=== PATIENT | male | born 1965 | race African-American/Black ===

== ENCOUNTER 2019-09-27 06:30 | Observation (INO) | payer BC, OTHER ==
[~2019-09-27] VITALS: Ht 177.8 cm; Wt 80.3 kg
[~2019-09-27 06:30] MED LIST: METFORMIN HCL500 MG PO; TOPROL XL50 MG PO; TRIBENZOR 40-11 EAC1 PO
[2019-09-27] MEDS ORDERED: GABAPENTIN 300 MG CAP ONE (07:05)
[2019-09-27] MEDS ORDERED: CELECOXIB 200 MG CAP ONE (07:05)
[2019-09-27] MEDS ORDERED: DEXAMETHASONE SOD PHOS 10 MG/1 ML VIAL ONE (07:05)
[2019-09-27] MEDS ORDERED: CEFAZOLIN SOD 1 GM/NS 50ML 100 ML IV ONE (07:05)
[2019-09-27] MEDS ORDERED: SODIUM CHLORIDE 0.9% 500ML 500 ML ONE (07:13)
[2019-09-27] MEDS ORDERED: VANCOMYCIN HCL 1,000 MG ONE (07:13)
[2019-09-27] MEDS ORDERED: BACITRACIN 50,000 UNIT VIAL ONE (07:14)
[2019-09-27] MEDS ORDERED: ROPIVACAINE 246.25 MG, EPINEPHRINE HCL 1:1000 1ML 0.5 MG, CLONIDINE HCL 0.08 MG, KETORO... INJ ONE ×5 (07:45)
[2019-09-27] MEDS ORDERED: BUPIVACAINE 7.5MG/ML /DEXTROSE 82.5MG/ML 2 ML AMP INJ ONE (07:52)
[2019-09-27] MEDS ORDERED: TRANEXAMIC ACID 1,000 MG/10 ML ML ONE (08:42)
[2019-09-27] MEDS ORDERED: ACETAMINOPHEN 650 MG SUPP PR PRN (09:30)
[2019-09-27] MEDS ORDERED: ZOLPIDEM TARTRATE 5 MG TAB PO PRN (09:30)
[2019-09-27] MEDS ORDERED: HYDROCODONE/APAP 5MG-325MG TAB PO PRN (09:30)
[2019-09-27] MEDS ORDERED: DIPHENHYDRAMINE HCL INJ 50 MG/ML VIAL IV PRN (09:30)
[2019-09-27] MEDS ORDERED: KETOROLAC TROMETHAMINE 30 MG/ML VIAL IV PRN (09:30)
[2019-09-27] MEDS ORDERED: ONDANSETRON HCL INJ 2MG/ML 2ML 2 MG/ML VIAL IV PRN (09:30)
[2019-09-27] MEDS ORDERED: DOCUSATE SODIUM 100 MG CAP PO PRN (09:30)
--- NOTE | 2019-09-27 10:44 | Diagnostic Imaging Report ---
EXAMINATION: PELVIS AP 1-2 VIEWS INDICATION: Postoperative COMPARISON: None FINDINGS: Portable AP radiograph of the pelvis demonstrates immediate postoperative findings of left total hip replacement. Alignment is anatomic. No unexpected fracture. Postoperative soft tissue emphysema. Surgical skin robert in place. Mild degenerative changes of the [place] right hip joint. IMPRESSION: Anatomic alignment status post left total hip replacement. Signed by: Ulises Ashby MD on 09/27/2019 10:41 AM
[2019-09-27 11:45] VITALS: BP 100/61
--- NOTE | 2019-09-27 11:58 | Operative Report ---
DATE OF PROCEDURE: 09/27/2019 SURGEON: Doni Sanchez MD STATIONS SUPERINTENDENT: Nikita Cabrera, certified PA. PREOPERATIVE DIAGNOSIS: Osteonecrosis, left hip. POSTOPERATIVE DIAGNOSIS: Osteonecrosis, left hip. PROCEDURE: Left total hip arthroplasty. INDICATIONS: The patient is a 54-year-old gentleman, who has longstanding osteonecrosis of both hips. He states that he is more symptomatic on the left compared to the right. He had bilateral cord decompressions several years ago. His symptoms improved until recently. He states that the pain in his hips compromises his quality of life to the extent that he would like to proceed with definitive intervention. The risks and benefits of hip replacement surgery were discussed. All of his questions were answered. He stated he understood and wished to proceed. PROCEDURE IN DETAIL: The patient was brought to the operating room and given a spinal anesthetic. He received prophylactic antibiotics and tranexamic acid in the holding area. He was positioned in the right lateral decubitus position. His left hip was prepped and draped in a sterile manner. A preoperative time-out was performed. A posterior approach was made to the left hip. Hemostasis was obtained with electrocautery. The deep fascia was incised. A self-retaining Charnley retractor was placed. The posterior capsule was carefully exposed and released. He was noted to have significant contracture prohibiting internal rotation. The hip was dislocated and an oscillating saw was used to remove the femoral head. Subchondral collapse was noted. A moderate joint effusion was encountered. Acetabular retractors were carefully placed. The labral remnant was excised. The true floor of the acetabulum was then established with a 46 mm reamer. The socket was then sequentially reamed up to 53 mm. This accomplished bleeding hemispherical cancellous bone. The hip was thoroughly irrigated on several occasions with a shower tip pulsatile lavage were a spray mixture of diluted polymyxin and vancomycin spray. A 54 mm outer diameter OsseoTi socket was then impacted into place. All of the components were produced by [employer]. The fixation of the socket was augmented with a single 25 mm cancellous screw placed into the ilium. A highly cross-linked polyethylene liner with a 36 mm inner diameter was then impacted into place. Care was taken to make sure that there was no evidence of soft tissue interposition. The socket was packed with a moistly soaked lap sponge. Attention was directed towards the proximal femur. A box cutting osteotome and taper pin reamer were used to establish entry to the femoral canal. The Taperloc broaches were impacted. A size 12 stem had good canal fill and stability for a trial reduction. A standard 36 mm head was noted to restore appropriate limb length and have good stability throughout a full arc of motion. The trial implants were removed. The hip was further irrigated with the pulsatile lavage. A Taperloc stem was then impacted into place. A standard neck and 36 mm ceramic head were then seated onto the stem after making sure it was clean and dry. A final reduction was performed. A 100 mL premixed pericapsular DOMENIC injection was then placed in and around the soft tissue. A 500 mg of vancomycin powder was sprinkled into the wound. The deep fascia was closed with interrupted #2 Ethibond. The skin was closed with subcuticular Vicryl and robert. A sterile Aquacel bandage was applied. He was returned to the supine position and transported to the recovery room in stable condition. Estimated blood loss was 100 mL. At the end of the procedure, all needle and sponge counts were correct. Doni Sanchez MD DR/JANIYA /[id number]
[2019-09-27] MEDS: SODIUM CHLORIDE 0.9% 1000ML 1,000 ML IV SCH ×2 (12:33→23:20)
--- NOTE | 2019-09-27 12:35 | NUR ---
DR SENIOR OFFICE PREARRANGED FOLLOWING DISCHARGE PLAN OF:HOME [id number] [address]YAL [id number] HOME HEALTH WITH HOME CARE PROVIDERS CONFIRMED WITH [facility] [phone] DME 3 IN ONE COMMODE, CPM AND ROLLING WALKER WITH WHEELS. PROVIDED BY [facility] [phone]
[2019-09-27 12:47] VITALS: BP 100/61
[2019-09-27 12:49] VITALS: BP 100/61
[2019-09-27] MEDS ORDERED: PROPOFOL IV EMULSION 10 MG/ML 20 ML VIAL ONE (14:02)
[2019-09-27] MEDS ORDERED: LIDOCAINE HCL 2% LOCAL INJ 5 ML SDV VIAL INJ ONE (14:02)
[2019-09-27] MEDS ORDERED: ETOMIDATE 2 MG/ML 10 ML INJ IV ONE (14:02)
[2019-09-27] MEDS ORDERED: ONDANSETRON HCL INJ 2MG/ML 2ML 2 MG/ML VIAL ONE (14:02)
[2019-09-27] MEDS: CEFAZOLIN SOD 1 GM/NS 50ML 50 ML IV SCH (16:09)
[2019-09-27] MEDS: CELECOXIB 200 MG CAP PO SCH (16:09)
[2019-09-27] MEDS: ASPIRIN 325 MG TAB PO SCH (16:09)
[2019-09-27 16:46] VITALS: BP 116/82
--- NOTE | 2019-09-27 19:55 | NUR ---
RECEIVED REPORT FROM PREVIOUS NURSE. CALL LIGHT WITHIN REACH. PATIENT IN BED. ROUNDING PERFORMED.
[2019-09-27 20:00] VITALS: BP 118/70
[2019-09-27] MEDS: HYDROCODONE/APAP 7.5MG-325MG 1 EA TAB PO PRN (20:22)
[2019-09-27 20:42] VITALS: BP 118/70
[2019-09-28] VITALS: BP 125/73
[2019-09-28] MEDS: CEFAZOLIN SOD 1 GM/NS 50ML 50 ML IV SCH ×2 (00:33→08:58)
[2019-09-28] MEDS: HYDROCODONE/APAP 7.5MG-325MG 1 EA TAB PO PRN (00:33)
[2019-09-28 04:00] VITALS: BP 128/73
[2019-09-28] MEDS: ACETAMINOPHEN 1000 MG/100 ML IV PRN ×2 (04:52→10:44)
[2019-09-28 04:58] LABS: HEMATOCRIT 37.8 % (38.2-49.6); HEMOGLOBIN 12.6 g/dL (14.0-18.0)
--- NOTE | 2019-09-28 07:28 | NUR ---
GAVE BEDSIDE SHIFT REPORT TO ONCOMING NURSE. CALL LIGHT WITHIN REACH. PATIENT IN BED. HOURLY ROUNDING PERFORMED.
--- NOTE | 2019-09-28 07:29 | NUR ---
bedside shift report received from PM nurse. pt awake, alert, oriented X3, no complaints at this time.
[2019-09-28] MEDS: SODIUM CHLORIDE 0.9% 1000ML 1,000 ML IV SCH (07:30)
[2019-09-28 07:51] VITALS: BP 128/73
[2019-09-28 07:58] VITALS: BP 127/75
[2019-09-28] MEDS: CELECOXIB 200 MG CAP PO SCH (08:58)
[2019-09-28] MEDS: ASPIRIN 325 MG TAB PO SCH (08:58)
--- NOTE | 2019-09-28 09:02 | Consultation ---
DATE OF CONSULTATION: REASON FOR CONSULTATION: Postop medical management. HISTORY OF PRESENT ILLNESS: The patient is a 54-year-old gentleman, status post left hip repair due to osteonecrosis. REVIEW OF SYSTEMS: Complains of left hip pain. Otherwise, denies any chills, fevers, nausea, vomiting, headache, shortness of breath, or dizziness, no chest pain on review of systems. PAST MEDICAL HISTORY: Significant for diabetes and high blood pressure. MEDICATIONS: See MAR. ALLERGIES: SHELLFISH. SUBJECTIVE: He works full-time. Denies any tobacco use. FAMILY HISTORY: Stroke, high blood pressure and heart disease. PHYSICAL EXAMINATION: VITAL SIGNS: 97.8, pulse 53, blood pressure 125/73, sats 95% on room air. GENERAL: No apparent distress, lying in bed. NECK: Supple. CARDIOVASCULAR: Regular rate and rhythm. LUNGS: Clear to auscultation bilaterally. ABDOMEN: Good bowel sounds. Soft, nontender. EXTREMITIES: No clubbing or cyanosis. NEUROLOGIC: Nonfocal. ASSESSMENT AND PLAN: 1. Anemia. Check CBC. 2. Left hip pain. Continue with postoperative care. 3. Bradycardia. Continue to monitor since he is asymptomatic. 4. Diabetes. Continue to monitor as well. 5. Hypertension. We will restart his medicines at discharge. Please see hospital chart for full details. MD MICHAEL Obregon/JANIYA /[id number]
[2019-09-28] MEDS ORDERED: ONDANSETRON HCL 4 MG ORAL DISINTEGRATING TAB PO PRN (11:30)
[2019-09-28 11:35] VITALS: BP 113/70
== END 2019-09-28 12:10 | disposition home health service (06) ==
LOC: OR 06:30 → PACU V 09:28 → MED/SURG 10:54
PROVIDERS: ADMIT Specialist; ATTEND Specialist
DX: M16.0 Bilateral primary osteoarthritis of hip (principal); E11.9 Type 2 diabetes mellitus without complications; I10 Essential (primary) hypertension; R00.1 Bradycardia, unspecified; G89.18 Other acute postprocedural pain; Z11.59 Encounter for screening for other viral diseases
CPT/HCPCS: 27130; 36415 ×2; 72170; 82948; 85014; 85018; 86850; 86900; 86920; 88304; 88311; 97116 ×2; 97139; 97161; 97530 ×2; G0378 ×2; J0131; J0171; J0690 ×2; J1100; J1885; J2001; J2405; J2704; J2795; J3370; J7030; J7040; U0002

== ENCOUNTER 2019-12-06 05:59 | Observation (INO) | payer BC, OTHER ==
[~2019-12-06] VITALS: Ht 177.8 cm; Wt 81.6 kg
[2019-12-06] MEDS ORDERED: BUPIVACAINE 7.5MG/ML /DEXTROSE 82.5MG/ML 2 ML AMP INJ ONE (06:43)
[2019-12-06] MEDS ORDERED: GABAPENTIN 300 MG CAP ONE (07:19)
[2019-12-06] MEDS ORDERED: DEXAMETHASONE SOD PHOS 10 MG/1 ML VIAL ONE (07:19)
[2019-12-06] MEDS ORDERED: CEFAZOLIN SOD 1 GM/NS 50ML 100 ML IV ONE (07:19)
[2019-12-06] MEDS ORDERED: CELECOXIB 200 MG CAP ONE (07:19)
[2019-12-06] MEDS ORDERED: VANCOMYCIN HCL 1,000 MG ONE (07:28)
[2019-12-06] MEDS ORDERED: TRANEXAMIC ACID 1,000 MG/10 ML ML ONE (07:29)
[2019-12-06] MEDS ORDERED: SODIUM CHLORIDE 0.9% 500ML 500 ML ONE (07:29)
[2019-12-06] MEDS ORDERED: ROPIVACAINE 246.25 MG, EPINEPHRINE HCL 1:1000 1ML 0.5 MG, CLONIDINE HCL 0.08 MG, KETORO... INJ ONE ×5 (08:00)
[2019-12-06] MEDS ORDERED: DOCUSATE SODIUM 100 MG CAP PO PRN (09:30)
[2019-12-06] MEDS ORDERED: ONDANSETRON HCL INJ 2MG/ML 2ML 2 MG/ML VIAL IV PRN (09:30)
[2019-12-06] MEDS ORDERED: DIPHENHYDRAMINE HCL INJ 50 MG/ML VIAL IV PRN (09:30)
[2019-12-06] MEDS ORDERED: HYDROCODONE/APAP 5MG-325MG TAB PO PRN (09:30)
[2019-12-06] MEDS ORDERED: ACETAMINOPHEN 650 MG SUPP PR PRN (09:30)
[2019-12-06] MEDS ORDERED: SODIUM CHLORIDE 0.9% 1000ML 1,000 ML IV SCH (09:30)
[2019-12-06] MEDS ORDERED: KETOROLAC TROMETHAMINE 30 MG/ML VIAL IV PRN (09:30)
[2019-12-06] MEDS ORDERED: FENTANYL CITRATE/PF 100MCG/2 ML INJ ONE ×2 (09:56→12:58)
--- NOTE | 2019-12-06 09:57 | Diagnostic Imaging Report ---
EXAMINATION: PELVIS AP 1-2 VIEWS INDICATION: Postoperative COMPARISON: None FINDINGS: Single AP view of the pelvis demonstrates immediate postoperative findings of right total hip replacement. Alignment is anatomic. No unexpected fracture. Postoperative soft tissue emphysema. Surgical skin robert over line the lateral thigh soft tissues. Anatomic alignment of prior left total hip replacement without evidence of hardware complication. IMPRESSION: Anatomic alignment status post interval right total hip replacement. Signed by: Ulises Ashby MD on 12/06/2019 9:54 AM
[2019-12-06] MEDS: HYDROCODONE/APAP 7.5MG-325MG 1 EA TAB PO PRN ×3 (10:10→18:08)
[2019-12-06] MEDS ORDERED: HYDROMORPHONE 1MG/1ML INJ ONE (10:24)
--- NOTE | 2019-12-06 11:27 | Operative Report ---
DATE OF PROCEDURE: 12/06/2019 SURGEON: Doni Sanchez MD FLOOR CLERK: Nikita Cabrera, certified PA. PREOPERATIVE DIAGNOSIS: Avascular necrosis, right hip. POSTOPERATIVE DIAGNOSIS: Avascular necrosis, right hip. PROCEDURE: Right total hip arthroplasty. INDICATIONS: The patient is a 54-year-old gentleman, who has a long history of avascular necrosis involving both hips. He has been through core decompressions and a left total hip replacement. He would now like to proceed with a right total hip replacement. The risks and benefits have been explained. He is familiar with the procedure. All of his questions have been answered. He states he understands and wishes to proceed. PROCEDURE IN DETAIL: The patient was brought to the operating room and placed under a spinal anesthetic. He received prophylactic antibiotics and tranexamic acid in the holding area. He was positioned in the left lateral decubitus position. His right hip was prepped and draped in a sterile manner. A preoperative time-out was performed. A posterior approach was made to the right hip. Care was taken to avoid any injury to the sciatic nerve. A self-retaining Charnley retractor was placed. Hemostasis was obtained with electrocautery. The posterior capsule was carefully exposed. A portion of the short external rotators and the posterior capsule were released. The hip was dislocated. Subchondral collapse of the femoral head was noted. An oscillating saw was used to resect the femoral head. Acetabular retractors were then carefully placed. The remnant of the labrum was excised. The true floor of the acetabulum was established with a 46 mm reamer. The socket was then sequentially reamed to 53 mm. This accomplished bleeding hemispherical cancellous bone. A [employer] 54 mm outer diameter OsseoTi socket was then impacted into place. Good fixation and bone quality were encountered. Fixation was augmented with a single 25 mm screw placed into the ilium. A highly cross-linked polyethylene liner with a 36 mm inner diameter was then seated into place. Care was taken to make sure that there was no evidence of soft tissue interposition. The socket was thoroughly irrigated on several occasions with a shower tip pulsatile lavage. A portion of a 100 mL premixed pericapsular DOMENIC injection was placed around the deep soft tissue. The socket was packed with a moistly soaked lap sponge and attention was directed towards the proximal femur. A box cutting osteotome and taper pin reamer were used to establish entry to the femoral canal. The [employer] Taperloc broaches were impacted. A size 12 stem had good canal fill and rotational stability for trial reduction. A standard 36 mm head was felt to provide appropriate soft tissue balancing, zoroastrian of limb length, and stability through a full arc of motion. The trial implants were removed. The pulsatile lavage was used to thoroughly irrigate the hip. The implant was seated. The neck of the stem was irrigated and cleaned and dried for placement of a standard 36 mm ceramic head and neck. A final reduction was performed. The posterior capsule was then carefully repaired using interrupted #2 Ethibond. A 500 mg of vancomycin powder was sprinkled into the deep wound. The fascia was closed with #2 Ethibond. The skin was closed with subcuticular Vicryl and robert. A sterile Aquacel bandage was applied. The patient was returned to the supine position and transported to the recovery room in stable condition. Estimated blood loss was 75 mL. At the end of the procedure, all needle and sponge counts were correct. Doni Sanchez MD DR/JANIYA /[id number]
[2019-12-06] MEDS ORDERED: MIDAZOLAM HCL 2 MG/2 ML VIAL ONE (12:58)
[2019-12-06] MEDS ORDERED: LIDOCAINE HCL 2% LOCAL INJ 5 ML SDV VIAL INJ ONE (13:15)
[2019-12-06] MEDS ORDERED: PROPOFOL IV EMULSION 10 MG/ML 20 ML VIAL ONE (13:15)
[2019-12-06] MEDS ORDERED: ONDANSETRON HCL INJ 2MG/ML 2ML 2 MG/ML VIAL ONE (13:15)
[2019-12-06 13:39] VITALS: BP 106/66
[2019-12-06] MEDS ORDERED: ACETAMINOPHEN 1000 MG/100 ML IV PRN (14:00)
[2019-12-06 14:31] VITALS: BP 119/74
[2019-12-06 16:34] VITALS: BP 121/61
[2019-12-06] MEDS: ASPIRIN 325 MG TAB PO SCH (18:08)
[2019-12-06] MEDS: CELECOXIB 100 MG CAP PO SCH (18:08)
[2019-12-06] MEDS: CEFAZOLIN SOD 1 GM/NS 50ML 50 ML IV SCH (18:08)
[2019-12-06 20:00] VITALS: BP 127/70
[2019-12-06] MEDS ORDERED: ZOLPIDEM TARTRATE 5 MG TAB PO PRN (21:00)
[2019-12-06 21:39] VITALS: BP 127/70
[2019-12-07] VITALS: BP 127/69
[2019-12-07] MEDS: CEFAZOLIN SOD 1 GM/NS 50ML 50 ML IV SCH ×2 (00:48→08:51)
[2019-12-07] MEDS: HYDROCODONE/APAP 7.5MG-325MG 1 EA TAB PO PRN ×3 (02:05→09:40)
[2019-12-07 04:00] VITALS: BP 137/71
[2019-12-07 05:19] LABS: HEMATOCRIT 36.1 % (38.2-49.6); HEMOGLOBIN 12.3 g/dL (14.0-18.0)
--- NOTE | 2019-12-07 05:26 | Consultation ---
DATE OF CONSULTATION: REASON FOR CONSULTATION: Postop medical management. HISTORY OF PRESENT ILLNESS: The patient is a 54-year-old gentleman, status post right hip arthroplasty. He is doing very well postoperatively with minimal pain. Denies any fever, chills, nausea, vomiting, headache, shortness of breath on review of systems. PAST MEDICAL HISTORY: Significant for diabetes and hypertension. MEDICATIONS: See MAR. Tramadol, Tribenzor, metformin, and Coreg. ALLERGIES: SHELLFISH. SOCIAL HISTORY: He drinks about 3 drinks a week. He is . 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 FAMILY HISTORY: Coronary artery disease, high blood pressure, and stroke. PHYSICAL EXAMINATION: VITAL SIGNS: Temperature 97.8, pulse 62, blood pressure 127/69, sats 98% on room air. GENERAL: No apparent distress, lying in bed. NECK: Supple. CARDIOVASCULAR: Regular rate and rhythm. LUNGS: Clear to auscultation bilaterally. ABDOMEN: Good bowel sounds. Soft, nontender. EXTREMITIES: No clubbing or cyanosis. NEUROLOGIC: Nonfocal. ASSESSMENT AND PLAN: 1. Right hip pain. We will continue with postoperative care and physical therapy. 2. Anemia. We will check a CBC. 3. Hypertension. We will continue to monitor his blood pressure. 4. Diabetes. Continue to monitor sugar and restart his med at discharge. Please see hospital chart for full details. MD MICHAEL Obregon/JANIYA /[id number]
--- NOTE | 2019-12-07 07:00 | NUR ---
RECEIVED PATIENT AWAKE RESTING IN BED. NO S/S OF DISTRESS. BED LOW, WHEELS LOCKED, SIDE RAILS X2. CALL LIGHT IN REACH WILL CONTINUE TO MONITOR PATIENT.
[2019-12-07 07:59] VITALS: BP 138/76
[2019-12-07 08:06] VITALS: BP 138/76
[2019-12-07] MEDS: CELECOXIB 100 MG CAP PO SCH (08:51)
[2019-12-07] MEDS: ASPIRIN 325 MG TAB PO SCH (08:51)
--- NOTE | 2019-12-07 09:45 | NUR ---
REMOVED PATIENTS IV. CATHETER TIP INTACT AND PRESSURE DRESSING APPLIED.
--- NOTE | 2019-12-07 10:10 | NUR ---
PATIENT DISCHARGED FROM FACILITY. PATIENT GATHERED ALL PERSONAL BELONGINGS, DISCHARGE INSTRUCTIONS, AND FOLLOW UP INFORMATION. LEFT UNIT IN WHEELCHAIR AND WENT HOME VIA PRIVATE AUTO. NO S/S OF DISTRESS LEAVING FACILITY.
--- OUTSIDE RECORDS SUMMARY | 2019-12-12 14:46 | XMS REPORT | Clinical Summary ---
Author Author [facility] Address Unknown Phone Unavailable Care Team Providers Care Lunch Truck Operator Name Role Phone Kulwant Wynn PCP Allergies Comments Active Allergy Reactions Severity Noted Date Shrimp Swelling 12/31/2018 Medications End Date Status Medication Sig Dispensed Refills Start Date Active jfrvwlxztl-ihOGTIHou-amak Take 1 tablet 0 iazid (TRIBENZOR) by mouth 40-10-25 mg Tab daily. Active carvedilol (COREG CR) 40 Take 40 mg by 0 MG 24 hr capsule mouth daily. 12/31/2018 Discontinued metFORMIN (GLUCOPHAGE-XR) Take 750 mg 0 750 MG 24 hr tablet by mouth 2 (two) times daily. Active Problems Problem Noted Date Crescendo angina 12/31/2018 Abnormal myocardial perfusion study 12/31/2018 Encounters Care Team Description Date Type Specialty Bernardino-Srini Valente MD L CATH & CORONARY ANGIOS 12/31/2018 Surgery Joselito Wilson MD Abnormal myocardial perfusion study 12/31/2018 Hospital Encounter Joselito Wilson MD 12/31/2018 Orders Only Cardiology after 12/05/2018 Social History Date Tobacco Use Types Packs/Day Years Used Never Smoker Smokeless Tobacco: Never Used Alcohol Use Drinks/Week oz/Week Comments Yes occasional Alcohol Habits Answer Date Recorded How often do you have a drink containing alcohol? Never 12/31/2018 How many drinks containing alcohol do you have on No t asked a typical day when you are drinking? How often do you have six or more drinks on one Not asked occasion? Sex Assigned at Date Recorded Not on file Industry Job Start Date Occupation Not on file Not on file Not on file Travel End Travel History Travel Start No recent travel history available. Last Filed Vital Signs Time Taken Vital Sign Reading 12/31/2018 7:45 PM CDT Blood Pressure 116/64 12/31/2018 7:45 PM CDT Pulse 59 12/31/2018 9:03 AM CDT Temperature 36.6 C (97.9 F) 12/31/2018 7:45 PM CDT Respiratory Rate 16 12/31/2018 5:15 PM CDT Oxygen Saturation 98% - Inhaled Oxygen - Concentration 12/31/2018 9:03 AM CDT Weight 80.6 kg (177 lb 12.8 oz) 12/31/2018 9:03 AM CDT Height 177.8 cm (5' 10") 12/31/2018 9:03 AM CDT Body Mass Index 25.51 Plan of Treatment Health Maintenance Due Date Last Done Comments COLON CANCER SCREENING 1964 COLONOSCOPY PNEUMOCOCCAL VACCINE 2-64 1970 YEARS AT RISK (1 of 1 - PPSV23) LIPID PANEL 1999 INFLUENZA VACCINE (#1) 2019 Procedures Comments Procedure Name Priority Date/Time Associated Diag nosis VASCULAR DIAGRAM -SCAN 01/08/2019 5:42 PM CDT REPORT OF PROCEDURE - 01/01/2019 ENDOSCOPY SCAN 11:42 AM CDT CARDIAC CATH REPORT - 01/01/2019 SCAN 11:42 AM CDT VASCULAR DIAGRAM -SCAN 01/01/2019 11:42 AM CDT PCI 12/31/2018 CAD in resighini arter y 6:59 PM CDT Case Notes 2 POP6 Special Needs W/ DR. Lebron L CATH & CORONARY ANGIOS 12/31/2018 CAD in nativ e artery 6:59 PM CDT Case Notes 2 POP6 Special Needs W/ DR. Lebron ECG 12-LEAD Routine 12/31/2018 10:34 AM CDT CBC W/PLT COUNT & AUTO Routine 12/31/2018 DIFFERENTIAL 9:53 AM CDT CBC W/PLT COUNT & AUTO Routine 12/31/2018 DIFFERENTIAL 9:53 AM CDT BASIC METABOLIC PANEL (7) Routine 12/31/2018 9:53 AM CDT after 12/05/2018 Results * VASCULAR DIAGRAM -SCAN (01/08/2019 5:42 PM CDT) Only the most recent of 2 results within the time period is included. Narrative Performed At This result has an attachment that is n ot available. * EKG-SCANNED (01/01/2019 11:42 AM CDT) Narrative Performed At This result has an attachment that is n ot available. * CARDIAC CATH REPORT - SCAN (01/01/2019 11:42 AM CDT) Narrative Performed At This result has an attachment that is n ot available. * ECG 12 lead (12/31/2018 10:34 AM CDT) Specimen Narrative Performed At Ventricular Rate 55 BPM [facility] Atrial Rate 55 BPM P-R Interval 138 ms QRS Duration 94 ms Q-T Interval 414 ms QTC Calculation(Bazett) 396 ms P Cascade 55 degrees R Cascade 43 degrees T Cascade 37 degrees Sinus bradycardia Otherwise normal ECG No previous ECGs available Confirmed by Kai Gutierrez ([id number]) on 12/31/2018 8:27:21 PM Procedure Note Interface, External Ris In - 12/31/2018 8:27 PM CDT Ventricular Rate 55 BPM Atrial Rate 55 BPM P-R Interval 138 ms QRS Duration 94 ms Q-T Interval 414 ms QTC Calculation(Bazett) 396 ms P Cascade 55 degrees R Cascade 43 degrees T Cascade 37 degrees Sinus bradycardia Otherwise normal ECG No previous ECGs available Confirmed by Kai Gutierrez ([id number]) on 12/31/2018 8:27:21 PM Performing Organization Address City/State/Zipcode Ph one Number [facility] * CBC with platelet count + automated diff (12/31/2018 9:53 AM CDT) WBC 5.8 3.5 - 10.5 K/L [facility] RBC 4.13 (L) 4.63 - 6.08 M/L [facility] Hemoglobin 13.5 (L) 13.7 - 17.5 GM/DL [facility] Hematocrit 39.5 (L) 40.1 - 51.0 % [facility] MCV 95.6 (H) 79.0 - 92.2 fL [facility] MCH 32.7 (H) 25.7 - 32.2 pg [facility] MCHC 34.2 32.3 - 36.5 GM/DL [facility] RDW 12.9 11.6 - 14.4 % [facility] Platelets 164 150 - 450 K/CU MM [facility] MPV 10.3 9.4 - 12.4 fL [facility] nRBC 0 0 - 0 /100 WBC [facility] % Neutros 53 % [facility] % Lymphs 32 % [facility] % Monos 13 % [facility] % Eos 2 % [facility] % Baso 1 % [facility] # Neutros 3.07 1.78 - 5.38 K/L [facility] # Lymphs 1.83 1.32 - 3.57 K/L [facility] # Monos 0.75 0.30 - 0.82 K/L [facility] # Eos 0.11 0.04 - 0.54 K/L [facility] # Baso 0.03 0.01 - 0.08 K/L [facility] Immature 0 0 - 1 % [facility] Granulocytes-Relative [facility] Specimen Blood Performing Organization Address City/State/Zipcode Ph one Number [facility] [address] [place], [place] [address] [facility] * Basic metabolic panel (12/31/2018 9:53 AM CDT) Sodium 140 136 - 145 meq/L [facility] Potassium 3.8 3.5 - 5.1 meq/L [facility] Chloride 101 98 - 107 meq/L [facility] CO2 33 (H) 22 - 29 meq/L [facility] BUN 15 7 - 21 mg/dL [facility] Creatinine 0.81 0.57 - 1.25 mg/dL [facility] Glucose 152 (H) 70 - 105 mg/dL [facility] Calcium 9.6 8.4 - 10.2 mg/dL [facility] EGFR 120Comment: ESTIMATED GFR IS mL/min/1.73 sq m [facility] NOT ACCURATE CREATININE [facility] CLEARANCE IN PREDICTING GLOMERULAR FILTRATION RATE. ESTIMATED GFR IS NOT APPLICABLE FOR DIALYSIS PATIENTS. Specimen Blood Performing Organization Address City/State/Zipcode Ph one Number [facility] [address] [place] [address] [facility] after 12/05/2018 Insurance Payer Benefit Subscriber ID Type Phone Address Plan / Group BLUE CROSS/BLUE SHIELD BCBS PPO xxxxxxxxxxxx PPO [address] [place] [address] CHOICE [id number] Advance Directives For more information, please contact: [address] [phone] Date Inactivated Comments Code Status Date Activated 12/31/2018 10:57 PM Full Code 12/31/2018 9:26 AM This code status was determined by: Patient
--- OUTSIDE RECORDS SUMMARY | 2019-12-12 14:46 | XMS REPORT | Clinical Summary ---
Author Author [facility] Address Unknown Phone Unavailable Care Team Providers Care Clinic Coordinator Name Role Phone Kulwant Wynn MD PCP Allergies No Known Active Allergies Medications End Date Status Medication Sig Dispensed Refills Start Date Active carvedilol CR (COREG CR) Take 40 mg by 0 40 MG 24 hr capsule mouth daily. Active metFORMIN XR Take 750 mg 0 (GLUCOPHAGE-XR) 750 MG 24 by mouth hr tablet daily with breakfast. Active ubixglnzhz-dsoqtlzfy-qltn Take 1 tablet 0 iazid (TRIBENZOR) by mouth 40-10-25 mg tablet daily. Active Problems Problem Noted Date Chest pain 01/01/2016 Social History Date Tobacco Use Types Packs/Day Years Used Never Smoker Drinks/Week oz/Week Comments Alcohol Use No Sex Assigned at Date Recorded Not on file Last Filed Vital Signs Not on file Plan of Treatment Health Maintenance Due Date Last Done Comments COLONOSCOPY SCREENING 2014 SHINGLES VACCINES (#1) 2014 INFLUENZA VACCINE 10/16/2019 Results Not on fileafter 12/05/2018 Insurance Type Payer Benefit Subscriber ID Effective Phone Address Plan / Dates Group PPO BCBS BCBS [id number] CHOICE resent PPO/FEDERA L EMPL PPO Advance Directives For more information, please contact: [phone] Patient Marketing Director Assisted Living Explanation Type Date Recorded Advance Directives, Living Will and Medical Power of 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
--- OUTSIDE RECORDS SUMMARY | 2019-12-12 14:46 | XMS REPORT | Continuity of Care Document ---
Author Author [facility] t Organization [facility] Address [address] [place] [address] Phone Unavailable Care Team Providers Care Air Tester Name Role Phone NO, PCP PCP Unavailable NICKI MUELLER Attphydaniel Unavailable Kirsten Wilson MD Attphys Radames Saunders MD Attphys KIRSTEN WILSON Attphys Unavailable SALLY MENARD Admphys Unavailable NICKI MUELLER Admphydaniel Unavailable KIRSTEN WILSON Admphys Unavailable Payers Payer Name Policy Type Policy Number Effective Date Expiration Date S blossom [employer] [place] Ppo [id number] 2019 00:00:00 [facility] Cdc Review [id number] [facility] BLUE CROSS/BLUE SHIELDBCBS PPO POS EPO C [id number], [place] [address] xxxxxxxxxxxx [facility] Problems Condition Name Condition Details Condition Category Status Onset Date Resolution Date Last Treatment Date Treating Clinician Comments Source Crescendo angina Crescendo angina Disease Active 2018-12-31 00:00:00 [facility] Abnormal myocardial perfusion study Abnormal myocardial perfusio n study Disease Active 2018-12-31 00:00:00 [facility] Chest pain Chest pain Disease Active 2016-01-01 00:00:00 [facility] Problem Condition Active [facility] Allergies, Adverse Reactions, Alerts Allergy Name Allergy Type Status Severity Reaction(s) Onset Date Inacti ve Date Treating Clinician Comments Source SHELLFISH Allergy to substance Active hives 2019-09-27 00:00:00 [facility] Shrimp Propensity to adverse reactions Active Swelling 2018-12 00:00:00 [facility] Romane r Social History Social Habit Start Date Stop Date Quantity Comments Source History SDOH Alcohol Std Drinks [facility] History SDOH Alcohol Binge [facility] Sex Assigned At [facility] History SDOH Alcohol Frequency 2018-12-31 00:00:00 2018-12-31 00:00:0 0 1 [facility] Alcohol Comment 2018-12-31 00:00:00 2018-12-31 00:00:00 occasional [facility] Alcohol intake 2016-01-01 00:00:00 2016-01-01 00:00:00 Current non-drinker of alcohol (finding) Jesse Patel Smoking Status Start Date Stop Date Source Never smoker [facility] Medications Ordered Medication Name Filled Medication Name Start Date Stop Da te Current Medication? Ordering Clinician Indication Dosage Frequency Signature (SIG) Comments Components Source metFORMIN (GLUCOPHAGE-XR) 750 MG 24 hr tablet 20 02-01-17 16:39:32 2018-12-31 00:00:00 No 750mg Q.5D Take 750 mg by mouth 2 (two) ti mes daily. [facility] ekjcrfrqfe-bmIDEESbm-xyhndppcw (TRIBENZOR) 40-10-25 mg Tab 2018-12-31 10:02:27 Yes 1{tbl} QD Take 1 tablet by mouth daily. [facility] carvedilol (COREG CR) 40 MG 24 hr capsule 2018-12-31 10:02:27 Yes 40mg QD Take 40 mg by mouth daily. [facility] carvedilol CR (COREG CR) 40 MG 24 hr capsule 2016-01-01 21:55:42 Yes 40mg QD Take 40 mg by mouth daily. Yen Patel metFORMIN XR (GLUCOPHAGE-XR) 750 MG 24 hr tablet 2016-01-01 21:55:42 Yes 750mg QD Take 750 mg by mouth daily with breakfast. Jesse Patel dmujfixyjv-pdzbgpmek-cdywbxvef (TRIBENZOR) 40-10-25 mg table t 2016-01-01 19:55:40 Yes 1{tbl} QD Take 1 tablet by mouth daily. Jesse Patel Metformin Hcl Metformin Hcl Yes 1500 Daily [facility] Metoprolol Succinate (Toprol Xl) 50 Mg TAB.ER.24H Meto prolol Succinate (Toprol Xl) 50 Mg TAB.ER.24H Yes 100 Daily [facility] Olmesartan Med/Amlodipine/Hctz (Tribenzor 40-10-25 Mg Tablet) 1 Each TABLET Olmesartan Med/Amlodipine/Hctz (Tribenzor 40-10-25 Mg Tablet) 1 Each TABLET Yes 1 Daily [facility] Vital Signs Vital Name Observation Time Observation Value Comments Source Body Temperature 2019-09-28 11:35:00 97.9 [degF] [facility] Weight 2019-09-27 12:40:00 177 [lb_av] [facility] BMI (Body Mass Index) 2019-09-27 12:40:00 25.4 kg/m2 [facility] Systolic blood pressure 2018-12-31 19:45:00 116 mm[Hg] [facility] Diastolic blood pressure 2018-12-31 19:45:00 64 mm[Hg] [facility] Heart rate 2018-12-31 19:45:00 59 /min [facility] Respiratory rate 2018-12-31 19:45:00 16 /min [facility] Oxygen saturation in Arterial blood by Pulse oximetry 2018-03 17:15:00 98 /min [facility] Body temperature 2018-12-31 09:03:00 36.61 Bella [facility] Body height 2018-12-31 09:03:00 177.8 cm [facility] Body weight Measured 2018-12-31 09:03:00 80.65 kg [facility] BMI 2018-12-31 09:03:00 25.51 kg/m2 [facility] Procedures Procedure Date / Time Performed Performing Clinician [facility] e VASCULAR DIAGRAM -SCAN 2019-01-08 17:42:25 Provider, Default Sca nning [facility] REPORT OF PROCEDURE - ENDOSCOPY SCAN 2019-01-01 11:42:10 Pro vider, Default Scanning [facility] CARDIAC CATH REPORT - SCAN 2019-01-01 11:42:07 Provider, Default Scanning [facility] VASCULAR DIAGRAM -SCAN 2019-01-01 11:42:05 Provider, Default Sca nning [facility] L CATH & CORONARY ANGIOS 2018-12-31 18:59:00 Ashleigh Saunders [facility] PCI 2018-12-31 18:59:00 Srini Saunders [facility] ECG 12-LEAD 2018-12-31 10:34:38 Kirsten Wilson [facility] BASIC METABOLIC PANEL (7) 2018-12-31 09:53:00 Kirsten Wilson [facility] CBC W/PLT COUNT & AUTO DIFFERENTIAL 2018-12-31 09:53:00 Naya Wilson [facility] Plan of Care Planned Activity Planned Date Details Comments Source Future Scheduled Test 2019-11-16 00:00:00 INFLUENZA VACCINE (#1) [code = INFLUENZA VACCINE (#1)] [facility] r Future Scheduled Test 2019-10-16 00:00:00 INFLUENZA VACCINE [code = INFLUENZA VACCINE] [facility] Scheduled Test 2014 00:00:00 COLONOSCOPY SCREEN ING [code = COLONOSCOPY SCREENING] [facility] Scheduled Test 2014 00:00:00 SHINGLES VACCINES (#1) [code = SHINGLES VACCINES (#1)] [facility] Scheduled Test 1999 00:00:00 Lipid panel (proce dure) [code = 14277758] [facility] 1970 00:00:00 PNEUMOCOCCAL VACCI NE 2-64 YEARS AT RISK (1 of 1 - PPSV23) [code = PNEUMOCOCCAL VACCINE 2-64 YEARS AT RISK (1 of 1 - PPSV23)] [facility] r Future Scheduled Test 1965 00:00:00 Screening for su gnant neoplasm of colon (procedure) [code = 850728371] [facility] Center Instructions Post Operative Pain [facility] Results Test Description Test Time Test Comments Results Result Comments Source PELVIS AP 1-2 VIEWS 2019-12-06 09:52:00 [facility] [address] [address] Patient Name: RICO FINCH MR #: [id number] : 1965 Age/Sex: 54/M Req #: [id number] Adm Physician: Ordered by: NICKI MUELLER MD Report #: [id number] Location: OR Room/Bed: Procedure: [id number] DX/PELVIS AP 1-2 VIEWS Exam Date: 12/06/19 Exam Time: 923 REPORT STATUS: Signed EXAMINATION: PELVIS AP 1-2 VIEWS INDICATION: Postoperative COMPARISON: None FINDINGS: Single AP view of the pelvis demonstrates immediate postoperative findings of right total hip replacement. Alignment is anatomic. No unexpected fracture. Postoperative soft tissue emphysema. Surgical skin robert over line the lateral thigh soft tissues. Anatomic alignment of prior left total hip replacement without evidence of hardware complication. IMPRESSION: Anatomic alignment status post interval right total hip replacement. Signed by: Jeny Buck MD on 12/06/2019 9:54 AM Dictated By: JENY BUCK MD 3 Transcribed By: EMMANUEL on 12/06/19953 COPY TO: NICKI MUELLER MD Blood hemoglobin measurement (moles/volume) 2019-09-28 04:48 :00 Test Item Hemoglobin (test code = 45492-3) 12.6 14.0-18.0 [facility] hematocrit (volume fraction)2019-09-28 04:48:00* Test Item Value Reference Range Interpretation Comments Hematocrit (test code = 4544-3) 37.8 38.2-49.6 [facility] glucose measurement by glucometer (mass/volume)2019-09-27 17:15:00* Test Item Value Reference Range Interpretation Comments Bedside Glucose (test code = 13496-2) 101 70-120 Meter ID: [id number] Orthopedic HospitalPELVIS AP 1-2 VIEWS 2019-09-27 10:40:00 [facility] [address] [address] Patient Name: RICO FINCH MR #: [id number] : 1965 Age/Sex: 54/M Req #: [id number] Adm Physician: NICKI MUELLER MD Ordered by: NICKI MUELLER MD Report #: [id number] Location: MED/SURG Room/Bed: [facility] Procedure: [id number] DX/PELVIS AP 1-2 VIEWS Exam Date: 09/27/19 Exam Time: 945 REPORT STATUS: Signed EXAMINATION: PELVIS AP 1-2 VIEWS INDICATION: Postoperative COMPARISON: None FINDINGS: Portable AP radiograph of the pelvis demonstrates immediate pos toperative findings of left total hip replacement. Alignment is anatomic. No u nexpected fracture. Postoperative soft tissue emphysema. Surgical skin robert in place. Mild degenerative changes of the [place] right hip joint. IMPRE SSION: Anatomic alignment status post left total hip replacement. 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 It is used under Emergency Use Authorization (EUA) by FDA.A positive result is indicative of the presence of SARS-CoV-2 RNA. Clinical correlation with patient history and other diagnostic information is necessary to determine patient infe ction status.A negative (Not Detected) result does not preclude SARS-CoV-2 infec tion. Clinical Correlation with patient history and other diagnostic information should be used in patient management decisions.Invalid: Unable to generate a va lid result on this specimen. Please submit a new specimen for reprat testing oc clinically indicated.Tesing performed by:[facility] [address] [place] [address] [id number], Km Crawford MD, PhD [facility] 12 [id number] 20:27:23Interface, External Ris In - 12/31/2018 8:27 PM CDTVentricular Rate 55 BPMAtrial Rate 55 BPMP-R Interval 138 msQRS Duration 94 msQ-T Interval 414 msQTC Calcula tion(Bazett) 396 msP [place] 55 degreesR [place] 43 degreesT [place] 37 degreesSinus ketan ycardiaOtherwise normal ECGNo previous ECGs availableConfirmed by David Gutierrez ([id number]) on 12/31/2018 8:27:21 [facility] [id number] 10:25:00* Test Item Value Reference Range Interpretation Comments Sodium (test code = 2951-2) 140 meq/L 136-145 Potassium (test code = 2823-3) 3.8 meq/L 3.5-5.1 Chloride (test code = 5-0) 101 meq/L 98-107 CO2 (test code = 2028-9) 33 meq/L 22-29 H BUN (test code = 3094-0) 15 mg/dL 7-21 Creatinine (test code = 2160-0) 0.81 mg/dL 0.57-1.25 Glucose (test code = 2345-7) 152 mg/dL 70-105 H Calcium (test code = 74432-0) 9.6 mg/dL 8.4-10.2 EGFR (test code = 74150-7) 120 mL/min/1.73 sq m ESTIMATED GFR IS NOT ACCURATE CREATININE CLEARANCE IN PREDICTING GLOMERULAR FILTRATION RATE. ESTIMATED GFR IS NOT APPLICABLE FOR DIALYSIS PATIENTS. Lab Interpretation (test code = 39412-6) [facility]normal [facility] METABOLIC [id number] 10:25:00* Test Item Value Reference Range Interpretation Comments SODIUM (BEAKER) (test code = 381) 140 meq/L 136-145 POTASSIUM (BEAKER) (test code = 379) 3.8 meq/L 3.5-5.1 CHLORIDE (BEAKER) (test code = 382) 101 meq/L 98-107 CO2 (BEAKER) (test code = 355) 33 meq/L 22-29 H BLOOD UREA NITROGEN (BEAKER) (test code = 354) 15 mg/dL 7-21 CREATININE (BEAKER) (test code = 358) 0.81 mg/dL 0.57-1.25 GLUCOSE RANDOM (BEAKER) (test code = 652) 152 mg/dL 70-105 H CALCIUM (BEAKER) (test code = 697) 9.6 mg/dL 8.4-10.2 EGFR (BEAKER) (test code = 1092) 120 mL/min/1.73 sq m ESTIMATED GFR IS NOT ACCURATE CREATININE CLEARANCE IN PREDICTING GLOMERULAR FILTRATION RATE. ESTIMATED GFR IS NOT APPLICABLE FOR DIALYSIS PATIENTS. CBC with platelet count + automated [id number] 10:05:00* Test Item Value Reference Range Interpretation Comments WBC (test code = 6690-2) 5.8 3.5- 10.5 K/L RBC (test code = 789-8) 4.13 4.63- 6.08 M/L L MCHC (test code = 786-4) 34.2 32.3- 36.5 GM/DL L Hematocrit (test code = 4544-3) 39.5 % 40.1-51 L MCV (test code = 787-2) 95.6 fL 79-92.2 H MCH (test code = 785-6) 32.7 pg 25.7-32.2 H RDW (test code = 788-0) 12.9 % 11.6-14.4 Platelets (test code = 777-3) 164 150- 450 K/CU MM MPV (test code = 09621-1) 10.3 fL 9.4-12.4 nRBC (test code = 413) 0 0- 0 /100 WBC % Neutros (test code = 429) 53 % % Lymphs (test code = 430) 32 % % Monos (test code = 431) 13 % % Eos (test code = 432) 2 % % Baso (test code = 437) 1 % # Neutros (test code = 670) 3.07 1.78- 5.38 K/L # Lymphs (test code = 414) 1.83 1.32- 3.57 K/L # Monos (test code = 415) 0.75 0.30- 0.82 K/L # Eos (test code = 416) 0.11 0.04- 0.54 K/L # Baso (test code = 417) 0.03 0.01- 0.08 K/L Immature Granulocytes-Relative (test code = 2801) 0 % 0-1 Lab Interpretation (test code = 52089-6) Abnormal [facility] W/PLT COUNT & AUTO [id number] 10:05:00* Test Item Value Reference Range Interpretation Comments WHITE BLOOD CELL COUNT (BEAKER) (test code = 775) 5.8 K/ L 3.5- 10.5 RED BLOOD CELL COUNT (BEAKER) (test code = 761) 4.13 M/ L 4.63-6 .08 L HEMOGLOBIN (BEAKER) (test code = 410) 13.5 GM/DL 13.7-17.5 L HEMATOCRIT (BEAKER) (test code = 411) 39.5 % 40.1-51.0 L MEAN CORPUSCULAR VOLUME (BEAKER) (test code = 753) 95.6 fL 79. 0-92.2 H MEAN CORPUSCULAR HEMOGLOBIN (BEAKER) (test code = 751) 32.7 pg 25.7-32.2 H MEAN CORPUSCULAR HEMOGLOBIN CONC (BEAKER) (test code = 752) 34.2 GM/DL 32.3-36.5 RED CELL DISTRIBUTION WIDTH (BEAKER) (test code = 412) 12.9 % 11.6-14.4 PLATELET COUNT (BEAKER) (test code = 756) 164 K/CU MM 150-450 MEAN PLATELET VOLUME (BEAKER) (test code = 754) 10.3 fL 9.4-12 .4 NUCLEATED RED BLOOD CELLS (BEAKER) (test code = 413) 0 /100 WBC 0 -0 NEUTROPHILS RELATIVE PERCENT (BEAKER) (test code = 429) 53 % LYMPHOCYTES RELATIVE PERCENT (BEAKER) (test code = 430) 32 % MONOCYTES RELATIVE PERCENT (BEAKER) (test code = 431) 13 % EOSINOPHILS RELATIVE PERCENT (BEAKER) (test code = 432) 2 % BASOPHILS RELATIVE PERCENT (BEAKER) (test code = 437) 1 % NEUTROPHILS ABSOLUTE COUNT (BEAKER) (test code = 670) 3.07 K/ L 1.78-5.38 LYMPHOCYTES ABSOLUTE COUNT (BEAKER) (test code = 414) 1.83 K/ L 1.32-3.57 MONOCYTES ABSOLUTE COUNT (BEAKER) (test code = 415) 0.75 K/ L 0. 30-0.82 EOSINOPHILS ABSOLUTE COUNT (BEAKER) (test code = 416) 0.11 K/ L 0.04-0.54 BASOPHILS ABSOLUTE COUNT (BEAKER) (test code = 417) 0.03 K/ L 0. 01-0.08 IMMATURE GRANULOCYTES-RELATIVE PERCENT (BEAKER) (test code = 2801) 0 % 0-1
== END 2019-12-07 10:10 | disposition home or self-care (01) ==
LOC: OR 05:59 → PACU V 09:17 → MED/SURG 13:01
PROVIDERS: ADMIT Specialist; ATTEND Specialist
DX: M16.11 Unilateral primary osteoarthritis, right hip (principal); E11.9 Type 2 diabetes mellitus without complications; I10 Essential (primary) hypertension; Z82.3 Family history of stroke; Z82.49 Family history of ischemic heart disease and other diseases of the circulatory system; Z96.642 Presence of left artificial hip joint; M87.851 Other osteonecrosis, right femur; Z11.59 Encounter for screening for other viral diseases; Z01.812 Encounter for preprocedural laboratory examination; Z91.013 Allergy to seafood; D64.9 Anemia, unspecified; Z79.84 Long term (current) use of oral hypoglycemic drugs
CPT/HCPCS: 27130; 36415 ×2; 72170; 82948; 85014; 85018; 86850; 86900; 86920; 97110; 97116; 97139 ×2; 97161; C1713 ×2; C1734; C1776; G0378 ×2; J0171; J0690 ×2; J1100; J1170; J1885; J2001; J2250; J2405; J2704; J2795; J3010; J3370; J7030; J7040; U0002